=== PATIENT | female | born 1950 | race Caucasian/White ===

== ENCOUNTER → 2017-02-06 | Outpatient (REF) | payer MEDICARE ==
[~2017-02-06] MED LIST: ACET1TAB17 PO; AUGM875T28 PO; SYNT75TA PO
== END ==
LOC: M LAB REF 17:06
PROVIDERS: ATTEND Specialist
DX: Z12.4 Encounter for screening for malignant neoplasm of cervix (principal)
CPT/HCPCS: 87624; G0123

== ENCOUNTER → 2017-02-27 | Outpatient (CLI) | payer MEDICARE ==
[2017-02-27 11:23] LABS: BLOOD UREA NITROGEN 14 MG/DL (7-18); GLUCOSE, FASTING 87 MG/DL (80-110)
[2017-02-27 11:24] LABS: ALKALINE PHOSPHATASE 84 U/L (45-117); ALT/SGPT 19 U/L (12-78); ANION GAP 7 MEQ/L (8-16); AST/SGOT 15 U/L (15-37); BILIRUBIN,TOTAL 0.5 MG/DL (0.2-1.0); CARBON DIOXIDE LEVEL 27 MEQ/L (21-32); CHLORIDE LEVEL 110 MEQ/L (98-107); CHOLESTEROL LEVEL 241 MG/DL (<200); CREATININE FOR GFR 0.63 MG/DL (0.55-1.02); GLOMERULAR FILTRATION RATE > 60.0 (>45); POTASSIUM SERUM 4.2 MEQ/L (3.5-5.1); SODIUM LEVEL 144 MEQ/L (136-145); TRIGLYCERIDES LEVEL 81 MG/DL (<150)
[2017-02-27 11:25] LABS: ALBUMIN 3.7 GM/DL (3.2-5.2); ALBUMIN/GLOBULIN RATIO 1.19 (1.00-1.93); FREE T4 0.98 NG/DL (0.76-1.46); TOTAL PROTEIN 6.8 GM/DL (6.4-8.2)
== END ==
LOC: M LAB 09:06
PROVIDERS: ATTEND Family Medicine
DX: E03.9 Hypothyroidism, unspecified (principal); E78.2 Mixed hyperlipidemia

== ENCOUNTER → 2017-03-13 | Outpatient (CLI) | payer MEDICARE ==
--- NOTE | 2017-03-13 14:15 | REPMRS ---
Patient History The patient states she had a clinical breast exam in January 2017. Patient is postmenopausal and had first child at age 31. Family history of unknown cancer in mother at age 50 or over and breast cancer in maternal cousin at age 50 or over. Digital Mammo Screening Bilat: March 13, 2017 - Exam #: [id number] Bilateral CC and MLO view(s) were taken. Technologist: Rachel Bone, Technologist Prior study comparison: March 12, 2016, bilateral digital mammo screening bilat performed at [facility]. January 06, 2015, bilateral digital mammo screening bilat performed at [facility]. FINDINGS: There are scattered fibroglandular densities. There has been no change in the appearance of the mammogram from the prior studies. There is a mild amount of residual fibroglandular tissue which is fairly symmetric. There is no interval development of dominant mass, architectural distortion, or clustered microcalcification suggestive of malignancy. ASSESSMENT: BI-RADS/ACR category 1 mammogram. Negative. Recommendation Routine screening mammogram in 1 year (for women over age 40). This mammogram was interpreted with the aid of an FDA-approved computer-aided dectection system. Electronically Signed By: Valentín Yates MD 03/13/17 [id number]
== END ==
LOC: M RAD 13:19
PROVIDERS: ATTEND Specialist
DX: Z12.31 Encounter for screening mammogram for malignant neoplasm of breast (principal); Z80.3 Family history of malignant neoplasm of breast

== ENCOUNTER → 2018-03-05 | Outpatient (CLI) | payer MEDICARE ==
[2018-03-05 10:59] LABS: ALBUMIN 3.4 GM/DL (3.2-5.2); ALBUMIN/GLOBULIN RATIO 1.13 (1.00-1.93); ALKALINE PHOSPHATASE 80 U/L (45-117); ALT/SGPT 19 U/L (12-78); ANION GAP 10 MEQ/L (8-16); AST/SGOT 13 U/L (7-37); BILIRUBIN,TOTAL 0.7 MG/DL (0.2-1.0); BLOOD UREA NITROGEN 10 MG/DL (7-18); CALCIUM LEVEL 8.8 MG/DL (8.8-10.2); CARBON DIOXIDE LEVEL 27 MEQ/L (21-32); CHLORIDE LEVEL 107 MEQ/L (98-107); CHOLESTEROL LEVEL 204 MG/DL (<200); CHOLESTEROL RISK RATIO 2.649 (<5); CREATININE FOR GFR 0.56 MG/DL (0.55-1.30); FREE T4 0.83 NG/DL (0.76-1.46); GLOMERULAR FILTRATION RATE > 60.0 (>45); GLUCOSE, FASTING 91 MG/DL (70-100); HDL CHOLESTEROL 77 MG/DL (>40); LDL CHOLESTEROL 103.2 MG/DL (<100); NON-HDL-C 127 MG/DL; POTASSIUM SERUM 4.4 MEQ/L (3.5-5.1); SODIUM LEVEL 144 MEQ/L (136-145); TOTAL PROTEIN 6.4 GM/DL (6.4-8.2); TRIGLYCERIDES LEVEL 119 MG/DL (<150)
== END ==
LOC: M LAB 09:17
DX: E03.9 Hypothyroidism, unspecified (principal); E78.2 Mixed hyperlipidemia
CPT/HCPCS: 84443

== ENCOUNTER → 2018-04-01 | Outpatient (CLI) | payer MEDICARE | LOC: M RAD 13:11 | DX: Z12.31 Encounter for screening mammogram for malignant neoplasm of breast (principal) | CPT/HCPCS: 77067 ==

== ENCOUNTER → 2019-03-06 | Outpatient (CLI) | payer MEDICARE ==
[~2019-03-06] MED LIST changes: -ACET1TAB17 PO; +ACET1TAB55 PO
[2019-03-06 11:10] LABS: ALBUMIN 3.6 GM/DL (3.2-5.2); ALT/SGPT 19 U/L (12-78); BILIRUBIN,TOTAL 0.4 MG/DL (0.2-1.0); BLOOD UREA NITROGEN 9 MG/DL (7-18); CALCIUM LEVEL 9.4 MG/DL (8.8-10.2); CARBON DIOXIDE LEVEL 29 MEQ/L (21-32); CHLORIDE LEVEL 110 MEQ/L (98-107); CHOLESTEROL LEVEL 245 MG/DL (<200); CHOLESTEROL RISK RATIO 3.223 (<5); CREATININE FOR GFR 0.61 MG/DL (0.55-1.30); GLOMERULAR FILTRATION RATE > 60.0 (>45); GLUCOSE, FASTING 92 MG/DL (70-100); HDL CHOLESTEROL 76 MG/DL (>40); LDL CHOLESTEROL 145 MG/DL (<100); NON-HDL-C 169 MG/DL; POTASSIUM SERUM 4.8 MEQ/L (3.5-5.1); SODIUM LEVEL 146 MEQ/L (136-145); TOTAL PROTEIN 6.8 GM/DL (6.4-8.2); TRIGLYCERIDES LEVEL 121 MG/DL (<150)
== END ==
LOC: M LAB 09:48
PROVIDERS: ATTEND Family Medicine
DX: E03.9 Hypothyroidism, unspecified (principal); E78.2 Mixed hyperlipidemia

== ENCOUNTER → 2019-04-27 | Outpatient (CLI) | payer MEDICARE ==
--- NOTE | 2019-04-27 15:05 | REPMRS ---
Patient History The patient states she has not had a clinical breast exam in over a year. Family history of unknown cancer at age 50 or over in mother, breast cancer at age 50 or over in maternal cousin. 3D TOMOSYNTHESIS WAS PERFORMED. The [facility] lifetime risk for breast cancer is 6.2%. Digital Mammo Screening Bilat: April 27, 2019 - Exam #: [id number] Bilateral CC and MLO view(s) were taken. Technologist: Melina Orr, Technologist Prior study comparison: April 01, 2018, bilateral digital mammo screening bilat performed at [facility]. March 13, 2017, bilateral digital mammo screening bilat performed at [facility]. FINDINGS: There are scattered fibroglandular densities. There has been no change in the appearance of the mammogram from the prior studies. There is a mild amount of residual fibroglandular tissue which is fairly symmetric. There is no interval development of dominant mass, architectural distortion, or clustered microcalcification suggestive of malignancy. Assessment: BI-RADS/ACR category 1 mammogram. Negative Mammogram. Recommendation Routine screening mammogram in 1 year (for women over age 40). This mammogram was interpreted with the aid of an FDA-approved computer-aided dectection system. Electronically Signed By: Valentín Yates MD 04/27/19 [id number]
== END ==
LOC: M RAD 13:26
PROVIDERS: ATTEND Family Medicine
DX: Z12.31 Encounter for screening mammogram for malignant neoplasm of breast (principal)

== ENCOUNTER → 2020-03-15 | Outpatient (CLI) | payer MEDICARE ==
[2020-03-15 12:30] LABS: ALBUMIN 3.7 GM/DL (3.2-5.2); ALT/SGPT 19 U/L (12-78); BILIRUBIN,TOTAL 0.6 MG/DL (0.2-1.0); BLOOD UREA NITROGEN 12 MG/DL (7-18); CALCIUM LEVEL 9.1 MG/DL (8.8-10.2); CARBON DIOXIDE LEVEL 28 MEQ/L (21-32); CHLORIDE LEVEL 111 MEQ/L (98-107); CHOLESTEROL LEVEL 240 MG/DL (<200); FREE T4 0.98 NG/DL (0.76-1.46); GLOMERULAR FILTRATION RATE > 60.0 (>39); GLUCOSE, FASTING 89 MG/DL (70-100); HDL CHOLESTEROL 80 MG/DL (>40); LDL CHOLESTEROL 139 MG/DL (<100); NON-HDL-C 160 MG/DL; POTASSIUM SERUM 4.4 MEQ/L (3.5-5.1); SODIUM LEVEL 144 MEQ/L (136-145); TOTAL PROTEIN 6.7 GM/DL (6.4-8.2); TRIGLYCERIDES LEVEL 105 MG/DL (<150)
== END ==
LOC: M LAB 10:48
PROVIDERS: ATTEND Family Medicine
DX: E78.2 Mixed hyperlipidemia (principal); E03.9 Hypothyroidism, unspecified

== ENCOUNTER → 2020-04-28 | Outpatient (CLI) | payer MEDICARE ==
--- NOTE | 2020-04-28 15:04 | REPMRS ---
Patient History The patient states she has not had a clinical breast exam in over a year. Family history of unknown cancer at age 50 or over in mother, breast cancer at age 50 or over in maternal cousin. 3D TOMOSYNTHESIS WAS PERFORMED. [facility] for [facility] 5.[facility]%. VOLPARA DENSITY B. Digital Woman Screen Mammo: April 28, 2020 - Exam #: [id number] Bilateral CC and MLO view(s) were taken. Technologist: Bessie Robb, Technologist Prior study comparison: April 27, 2019, bilateral digital mammo screening bilat, performed at [facility]. April 01, 2018, bilateral digital mammo screening bilat, performed at [facility]. FINDINGS: There are scattered fibroglandular densities. There has been no change in the appearance of the mammogram from the prior studies. There is a mild amount of residual fibroglandular tissue which is fairly symmetric. There is no interval development of dominant mass, architectural distortion, or clustered microcalcification suggestive of malignancy. Assessment: BI-RADS/ACR category 1 mammogram. Negative Mammogram. Recommendation Routine screening mammogram in 1 year (for women over age 40). This mammogram was interpreted with the aid of an FDA-approved computer-aided dectection system. Electronically Signed By: Valentín Yates MD 04/28/20 0722
== END ==
LOC: M WHC 12:45
PROVIDERS: ATTEND Family Medicine
DX: Z12.31 Encounter for screening mammogram for malignant neoplasm of breast (principal); Z80.9 Family history of malignant neoplasm, unspecified

== ENCOUNTER → 2021-03-23 | Outpatient (CLI) | payer MEDICARE ==
[2021-03-23 11:27] LABS: ALBUMIN 3.6 GM/DL (3.2-5.2); ALT/SGPT 21 U/L (12-78); BILIRUBIN,TOTAL 0.6 MG/DL (0.2-1.0); BLOOD UREA NITROGEN 10 MG/DL (7-18); CALCIUM LEVEL 9.5 MG/DL (8.8-10.2); CARBON DIOXIDE LEVEL 29 MEQ/L (21-32); CHLORIDE LEVEL 110 MEQ/L (98-107); CHOLESTEROL LEVEL 246 MG/DL (<200); CHOLESTEROL RISK RATIO 2.963 (<5); FREE T4 0.96 NG/DL (0.76-1.46); GLOMERULAR FILTRATION RATE > 60.0 (>39); GLUCOSE, FASTING 85 MG/DL (70-100); HDL CHOLESTEROL 83 MG/DL (>40); LDL CHOLESTEROL 140 MG/DL (<100); NON-HDL-C 163 MG/DL; POTASSIUM SERUM 4.3 MEQ/L (3.5-5.1); SODIUM LEVEL 141 MEQ/L (136-145); TOTAL PROTEIN 6.7 GM/DL (6.4-8.2); TRIGLYCERIDES LEVEL 116 MG/DL (<150)
== END ==
LOC: M LAB 09:26
PROVIDERS: ATTEND Family Medicine
DX: E03.9 Hypothyroidism, unspecified (principal)

== ENCOUNTER → 2021-05-30 | Outpatient (CLI) | payer MEDICARE ==
--- NOTE | 2021-05-30 14:51 | REPMRS ---
Patient History The patient states she has not had a clinical breast exam in over a year. Family history of unknown cancer at age 50 or over in mother, breast cancer at age 50 or over in maternal cousin. Tomosynthesis is performed. Volpara breast density is b. [facility] lifetime risk of breast cancer 5.2%. Patient states no breast complaints today. Patient has signed MRS History Sheet. Digital Woman Screen Mammo: May 30, 2021 - Exam #: [id number] Bilateral CC and MLO view(s) were taken. Technologist: Payton Madison, Technologist Prior study comparison: April 28, 2020, bilateral digital woman screen mammo performed at [facility]. April 27, 2019, bilateral digital mammo screening bilat, performed at [facility]. FINDINGS: There are scattered fibroglandular densities. There has been no change in the appearance of the mammogram from the prior studies. There is a mild amount of residual fibroglandular tissue which is fairly symmetric. There is no interval development of dominant mass, architectural distortion, or clustered microcalcification suggestive of malignancy. Assessment: BI-RADS/ACR category 1 mammogram. Negative Mammogram. Recommendation Routine screening mammogram in 1 year (for women over age 40). This mammogram was interpreted with the aid of an FDA-approved computer-aided dectection system. Electronically Signed By: Valentín Yates MD 05/30/21 [id number]
== END ==
LOC: M WHC 12:44
PROVIDERS: ATTEND Family Medicine
DX: Z12.31 Encounter for screening mammogram for malignant neoplasm of breast (principal)

== ENCOUNTER → 2022-04-11 | Outpatient (CLI) | payer MEDICARE ==
[2022-04-11 11:09] LABS: BLOOD UREA NITROGEN 13 MG/DL (7-18); CREATININE FOR GFR 0.56 MG/DL (0.55-1.30); GLUCOSE, FASTING 89 MG/DL (70-100)
[2022-04-11 11:10] LABS: ALBUMIN 3.9 GM/DL (3.2-5.2); ALT/SGPT 17 U/L (12-78); BILIRUBIN,TOTAL 0.6 MG/DL (0.2-1.0); CALCIUM LEVEL 9.7 MG/DL (8.8-10.2); CARBON DIOXIDE LEVEL 29 MEQ/L (21-32); CHLORIDE LEVEL 108 MEQ/L (98-107); CHOLESTEROL LEVEL 256 MG/DL (<200); CHOLESTEROL RISK RATIO 2.415 (<5); FREE T4 0.94 NG/DL (0.76-1.46); GLOMERULAR FILTRATION RATE > 60.0 (>39); HDL CHOLESTEROL 106 MG/DL (>40); LDL CHOLESTEROL 134 MG/DL (<100); NON-HDL-C 150 MG/DL; POTASSIUM SERUM 4.7 MEQ/L (3.5-5.1); SODIUM LEVEL 138 MEQ/L (136-145); TRIGLYCERIDES LEVEL 81 MG/DL (<150)
== END ==
LOC: M LAB 10:00
PROVIDERS: ATTEND Family Medicine
DX: E03.9 Hypothyroidism, unspecified (principal)

== ENCOUNTER → 2022-05-03 | Outpatient (REF) | payer MEDICARE | LOC: M SFHCADAM 11:44 | PROVIDERS: ATTEND Physician Assistant | DX: J00 Acute nasopharyngitis [common cold] (principal) ==

== ENCOUNTER → 2022-06-01 | Outpatient (CLI) | payer MEDICARE | LOC: M WHC 10:52 | PROVIDERS: ATTEND Physician Assistant | DX: Z12.31 Encounter for screening mammogram for malignant neoplasm of breast (principal) ==

== ENCOUNTER 2022-08-20 10:26 | Outpatient (RCR) | payer MEDICARE | END 2022-08-21 | LOC: M PT 10:26 | PROVIDERS: ATTEND Physician Assistant | DX: M25.511 Pain in right shoulder (principal) ==

== ENCOUNTER → 2022-08-31 | Outpatient (REF) | payer MEDICARE ==
[2022-08-31 15:27] LABS: HEMATOCRIT 42.5 % (36.0-47.0); HEMOGLOBIN 13.4 g/dl (12.0-15.5); MEAN CORPUSCULAR HEMOGLOBIN 31.4 pg (27.0-33.0); MEAN CORPUSCULAR HGB CONC 31.5 g/dl (32.0-36.5); MEAN CORPUSCULAR VOLUME 99.5 fl (80.0-96.0); PLATELET COUNT, AUTOMATED 303 10^3/uL (150-450); RED BLOOD COUNT 4.27 10^6/uL (4.00-5.40); WHITE BLOOD COUNT 6.1 10^3/uL (4.0-10.0)
[2022-08-31 15:54] LABS: C REACTIVE PROTEIN QUANTITATIV < 0.40 MG/DL (<1.0)
[2022-08-31 15:56] LABS: RHEUMATOID FACTOR QUANT < 3.5 IU/ML (<14)
[2022-08-31 15:57] LABS: FREE T4 1.29 NG/DL (0.89-1.76); THYROID STIMULATING HORMONE 2.433 uIU/ML (0.55-4.78)
[2022-09-03 16:08] LABS: ANA (HEP2) Negative (.)
== END ==
LOC: M SFHCADAM 10:40
PROVIDERS: ATTEND Family Medicine
DX: E03.9 Hypothyroidism, unspecified (principal); M15.9 Polyosteoarthritis, unspecified

== ENCOUNTER 2022-09-10 10:44 | Outpatient (RCR) | payer MEDICARE | END 2022-09-18 | LOC: M PT 10:44 | PROVIDERS: ATTEND Physician Assistant | DX: M25.511 Pain in right shoulder (principal) ==

== ENCOUNTER → 2023-03-21 | Outpatient (CLI) | payer MEDICARE ==
[2023-03-21 11:44] LABS: ALBUMIN 3.8 G/DL (3.2-5.2); ALKALINE PHOSPHATASE 78 U/L (46-116); ALT/SGPT 13 U/L (7.0-40); AST/SGOT 11 U/L (<34); BILIRUBIN,TOTAL 0.7 MG/DL (0.3-1.2); BLOOD UREA NITROGEN 14 MG/DL (9-23); CALCIUM LEVEL 9.6 MG/DL (8.3-10.6); CARBON DIOXIDE LEVEL 28 MMOL/L (20-31); CHLORIDE LEVEL 108 MMOL/L (98-107); CHOLESTEROL LEVEL 239 MG/DL (<200); CHOLESTEROL RISK RATIO 2.85 (<5); CREATININE FOR GFR 0.57 MG/DL (0.55-1.30); GLOMERULAR FILTRATION RATE > 60.0 (>39); GLUCOSE, FASTING 94 MG/DL (74-106); HDL CHOLESTEROL 83.7 MG/DL (>40); LDL CHOLESTEROL 135.1 MG/DL (<100); NON-HDL-C 155.3 MG/DL; POTASSIUM SERUM 4.4 MMOL/L (3.5-5.1); SODIUM LEVEL 143 MMOL/L (136-145); TOTAL PROTEIN 6.6 G/DL (5.7-8.2); TRIGLYCERIDES LEVEL 101 MG/DL (<150)
[2023-03-21 11:46] LABS: THYROID STIMULATING HORMONE 2.335 uIU/ML (0.55-4.78)
== END ==
LOC: M LAB 10:37
PROVIDERS: ATTEND Physician Assistant
DX: E03.9 Hypothyroidism, unspecified (principal); J00 Acute nasopharyngitis [common cold]; E78.2 Mixed hyperlipidemia

== ENCOUNTER → 2023-06-21 | Outpatient (CLI) | payer MEDICARE | LOC: M ADAMS 12:01 | PROVIDERS: ATTEND Physician Assistant | DX: M23.91 Unspecified internal derangement of right knee (principal); M17.11 Unilateral primary osteoarthritis, right knee; M11.261 Other chondrocalcinosis, right knee ==

== ENCOUNTER → 2023-07-19 | Outpatient (CLI) | payer MEDICARE | LOC: M WHC 13:58 | PROVIDERS: ATTEND Family Medicine | DX: Z12.31 Encounter for screening mammogram for malignant neoplasm of breast (principal) ==

== ENCOUNTER 2023-08-20 12:20 | Outpatient (RCR) | payer MEDICARE | END 2023-08-21 | LOC: M PT 12:20 | PROVIDERS: ATTEND Physician Assistant | DX: M25.561 Pain in right knee (principal) ==

== ENCOUNTER 2023-08-29 09:15 | Outpatient (RCR) | payer MEDICARE | END 2023-09-19 | LOC: M PT 09:15 | PROVIDERS: ATTEND Physician Assistant | DX: M25.561 Pain in right knee (principal) ==

== ENCOUNTER → 2023-12-24 | Outpatient (REF) | payer MEDICARE ==
[2023-12-24 17:57] LABS: HEMATOCRIT 41.2 % (36.0-47.0); MEAN CORPUSCULAR HEMOGLOBIN 31.4 pg (27.0-33.0); MEAN CORPUSCULAR HGB CONC 31.6 g/dl (32.0-36.5); MEAN CORPUSCULAR VOLUME 99.5 fl (80.0-96.0); PLATELET COUNT, AUTOMATED 287 10^3/uL (150-450); RED BLOOD COUNT 4.14 10^6/uL (4.00-5.40); WHITE BLOOD COUNT 6.5 10^3/uL (4.0-10.0)
[2023-12-24 18:01] LABS: BLOOD UREA NITROGEN 14 MG/DL (9-23); CALCIUM LEVEL 9.5 MG/DL (8.3-10.6); CARBON DIOXIDE LEVEL 26 MMOL/L (20-31); CHLORIDE LEVEL 107 MMOL/L (98-107); CREATININE FOR GFR 0.48 MG/DL (0.55-1.30); GLOMERULAR FILTRATION RATE > 60.0 (>39); GLUCOSE, FASTING 79 MG/DL (74-106); POTASSIUM SERUM 3.9 MMOL/L (3.5-5.1); SODIUM LEVEL 141 MMOL/L (136-145)
[2023-12-24 18:04] LABS: FREE T4 1.22 NG/DL (0.89-1.76)
[2023-12-24 18:05] LABS: THYROID STIMULATING HORMONE 2.189 uIU/ML (0.55-4.78)
== END ==
LOC: M SFHCADAM 12:38
PROVIDERS: ATTEND Family Medicine
DX: R06.09 Other forms of dyspnea (principal); E03.9 Hypothyroidism, unspecified

== ENCOUNTER → 2023-12-24 | Outpatient (CLI) | payer MEDICARE | LOC: M ADAMS 12:56 | PROVIDERS: ATTEND Family Medicine | DX: R06.09 Other forms of dyspnea (principal) ==

== ENCOUNTER → 2024-01-10 | Outpatient (CLI) | payer MEDICARE | LOC: M CARPUL 10:46 | PROVIDERS: ATTEND Family Medicine | DX: R01.1 Cardiac murmur, unspecified (principal); I08.3 Combined rheumatic disorders of mitral, aortic and tricuspid valves; I27.20 Pulmonary hypertension, unspecified ==

== ENCOUNTER → 2024-05-26 | Outpatient (REF) | payer MEDICARE ==
[2024-05-26 19:07] LABS: HEMATOCRIT 41.5 % (36.0-47.0); HEMOGLOBIN 13.6 g/dl (12.0-15.5); MEAN CORPUSCULAR HEMOGLOBIN 31.6 pg (27.0-33.0); MEAN CORPUSCULAR HGB CONC 32.8 g/dl (32.0-36.5); MEAN CORPUSCULAR VOLUME 96.3 fl (80.0-96.0); PLATELET COUNT, AUTOMATED 318 10^3/uL (150-450); RED BLOOD COUNT 4.31 10^6/uL (4.00-5.40); WHITE BLOOD COUNT 6.4 10^3/uL (4.0-10.0)
[2024-05-26 19:25] LABS: HEMOGLOBIN A1c 5.2 % (4.0-6.0)
[2024-05-26 19:34] LABS: ALBUMIN 3.9 G/DL (3.2-5.2); ALKALINE PHOSPHATASE 92 U/L (35-104); ALT/SGPT 17 U/L (7.0-40); AST/SGOT 12 U/L (<34); BILIRUBIN,TOTAL 0.5 MG/DL (0.3-1.2); BLOOD UREA NITROGEN 10 MG/DL (9-23); CALCIUM LEVEL 10.8 MG/DL (8.3-10.6); CARBON DIOXIDE LEVEL 28 MMOL/L (20-31); CHLORIDE LEVEL 104 MMOL/L (98-107); CHOLESTEROL LEVEL 279 MG/DL (<200); CHOLESTEROL RISK RATIO 2.84 (<5); CREATININE FOR GFR 0.52 MG/DL (0.55-1.30); GLOMERULAR FILTRATION RATE > 60.0 (>39); GLUCOSE, FASTING 92 MG/DL (74-106); HDL CHOLESTEROL 98.2 MG/DL (>40); LDL CHOLESTEROL 155.2 MG/DL (<100); NON-HDL-C 180.8 MG/DL; POTASSIUM SERUM 4.8 MMOL/L (3.5-5.1); SODIUM LEVEL 140 MMOL/L (136-145); TOTAL PROTEIN 7.1 G/DL (5.7-8.2); TRIGLYCERIDES LEVEL 128 MG/DL (<150)
[2024-05-26 19:36] LABS: FREE T4 1.33 NG/DL (0.89-1.76); THYROID STIMULATING HORMONE 3.862 uIU/ML (0.55-4.78)
== END ==
LOC: M SFHCADAM 11:55
PROVIDERS: ATTEND Family Medicine
DX: R06.09 Other forms of dyspnea (principal); E03.9 Hypothyroidism, unspecified; Z00.00 Encounter for general adult medical examination without abnormal findings; Z13.1 Encounter for screening for diabetes mellitus

== ENCOUNTER → 2024-07-21 | Outpatient (CLI) | payer MEDICARE | LOC: M WHC 12:52 | PROVIDERS: ATTEND Family Medicine | DX: Z12.31 Encounter for screening mammogram for malignant neoplasm of breast (principal) ==

== ENCOUNTER → 2024-12-02 | Outpatient (CLI) | payer MEDICARE | LOC: M ADAMS 11:39 | PROVIDERS: ATTEND Family Medicine | DX: M25.551 Pain in right hip (principal) ==

== ENCOUNTER → 2025-04-05 | Outpatient (CLI) | payer MEDICARE ==
[2025-04-05 12:23] LABS: PLATELET COUNT, AUTOMATED 282 10^3/uL (150-450)
[2025-04-05 13:02] LABS: ALT/SGPT 18 U/L (7.0-40); AST/SGOT 20 U/L (<34); CALCIUM LEVEL 9.2 MG/DL (8.3-10.6); CARBON DIOXIDE LEVEL 27 MMOL/L (20-31); CHLORIDE LEVEL 109 MMOL/L (98-107); CHOLESTEROL LEVEL 252 MG/DL (<200); CHOLESTEROL RISK RATIO 2.85 (<5); CREATININE FOR GFR 0.55 MG/DL (0.55-1.30); GLOMERULAR FILTRATION RATE > 90.0 (>39); LDL CHOLESTEROL 141.2 MG/DL (<100); NON-HDL-C 163.6 MG/DL; POTASSIUM SERUM 4.9 MMOL/L (3.5-5.1); SODIUM LEVEL 141 MMOL/L (136-145); TRIGLYCERIDES LEVEL 112 MG/DL (<150)
[2025-04-05 13:03] LABS: FREE T4 1.16 NG/DL (0.89-1.76)
== END ==
LOC: M LAB 11:12
PROVIDERS: ATTEND Family Medicine
DX: M25.551 Pain in right hip (principal); M11.20 Other chondrocalcinosis, unspecified site; I27.20 Pulmonary hypertension, unspecified; E78.2 Mixed hyperlipidemia; E03.9 Hypothyroidism, unspecified

== ENCOUNTER → 2025-04-20 | Outpatient (RCR) | payer MEDICARE | LOC: M PT 04-07 09:52 | PROVIDERS: ATTEND Orthopaedic Surgery | DX: M25.551 Pain in right hip (principal); M17.11 Unilateral primary osteoarthritis, right knee ==

== ENCOUNTER 2025-04-23 09:10 | Outpatient (RCR) | payer MEDICARE | END 2025-05-21 | LOC: M PT 09:10 | PROVIDERS: ATTEND Orthopaedic Surgery | DX: M25.551 Pain in right hip (principal); M17.11 Unilateral primary osteoarthritis, right knee; M54.50 Low back pain, unspecified ==

== ENCOUNTER → 2025-06-02 | Outpatient (CLI) | payer MEDICARE | LOC: M WHC 13:44 | PROVIDERS: ATTEND Family Medicine | DX: Z53.9 Procedure and treatment not carried out, unspecified reason (principal) ==